=== PATIENT | female | born 1950 ===

== ENCOUNTER 2020-03-09 06:31 | Day surgery (SDC) | payer OTHER | END 2020-03-09 12:45 | disposition home or self-care (01) | LOC: AMB-ENDOS 06:31 | PROVIDERS: ATTEND Surgery | DX: K62.89 Other specified diseases of anus and rectum (principal); K62.6 Ulcer of anus and rectum; K64.8 Other hemorrhoids; Z20.828 Contact with and (suspected) exposure to other viral communicable diseases ==